=== PATIENT | male | born 1980 | race Caucasian/White ===

== ENCOUNTER 2025-01-19 13:31 | Emergency (ER) | payer SELFPAY ==
[2025-01-19 13:39] VITALS: BP 144/78; PULSE 69; RESP 18; TEMP 37; O2SAT 95; BMI 26.6
--- NOTE | 2025-01-19 13:57 | EDNOTE_ITS ---
ED Medical Clearance RME/HPI General Chief complaint: Medical Clearance Stated complaint: MEDICAL CLEARANCE Arrival date/time: 01/19/25 13:31 RME / HPI RME / HPI Narrative: 45 year old male presents to the ED BIB [facility] [place] for medical clearance today. Per officer, patient is suspected to be under the influence of Fentanyl. Patient admits to overdosing on Fentanyl several days ago; states he was found unresponsive in his bathroom and was given Narcan. While in the ED patient has no complaints. Denies fevers, chills, chest pain, shortness of breath, abdominal pain, n/v, or urinary symtptoms. Review of Systems Review of Systems Narrative Review of Systems: GEN: No fever, no chills EYES: No discharge, no pain HEENT: No ear pain, no congestion, no sore throat PULM: No shortness of breath, no cough, no congestion CV: No chest pain, no palpitations GI: No nausea, no vomiting, no diarrhea, no pain, no constipation : No frequency, no urgency, no dysuria MUSC/SKEL: No joint pain, no back pain SKIN: No rash NEURO: No weakness, no headache Past Medical History Past Medical History CARDIAC: Negative Congestive Heart Failure RESPIRATORY: Negative Chronic Obstructive Pulmonary Disease (COPD) GENITOURINARY: Negative Renal Disease ENDOCRINE: Negative Diabetes Mellitus Type 1 or Diabetes Mellitus Type 2 Social History SMOKING STATUS: Current every day smoker ED Exam Narrative Physical exam: GENERAL APPEARANCE: Drowsy but arousable, oriented x 4, well-developed, well- nourished, no acute distress HEENT: normocephalic, atraumatic; pupils are 2mm and reactive NECK: supple LUNGS: no respiratory distress, normal effort HEART: good peripheral perfusion ABDOMEN: non distended EXTREMITIES:? atraumatic NEUROLOGIC: drowsy but arousable; oriented x4; cranial nerves II-XII grossly intact PSYCHIATRIC:? appropriate mood and affect SKIN: warm, dry, normal color; no rashes Course Quality Measures none Orders Category Date Time Status Bedside Blood Glucose NOW Care 01/19/25 13:57 Completed Vital Signs Vital signs: Vital Signs Temperature 98.6 F 01/19/25 13:39 Pulse Rate 69 01/19/25 13:39 Respiratory Rate 18 01/19/25 13:39 Blood Pressure 144/78 H 01/19/25 13:39 Pulse Oximetry (%) 95 01/19/25 13:39 Oxygen Delivery Method Room Air 01/19/25 13:39 Pulse ox is 95% on room air which is adequate. Medical Clearance MDM Narrative MDM Narrative:: Whitney Bosch am scribing for and in the presence of Dr. Crandall. Patient data External records reviewed:: [facility] previous records (Per EMR review, no previous visits for review ) Clinical information provided by:: patient and law enforcement Social determinants that could affect healthcare access:: substance use Patient has the following chronic illnesses:: None reported How is presenting disease/condition affected by chronic disease/condition?: no chronic disease Evaluation data The following diagnostics were reviewed and interpreted by me:: other (specify) (No diagnostics ordered ) Lab and/or radiology exams considered but not ordered:: None Interpretation Summary: N/A Medications / Prescriptions Medications or Prescriptions considered but not ordered:: None Medication administrations:: None Consultations Consultation(s) initiated? (list below): No Diagnosis Medical Clearance Differential Diagnosis: other (Drug intoxication, alcohol intoxication, medical clearance for incarceration. ) Most likely diagnosis given after review of the tests above:: Medical clearance for incarceration Drowsy Drug abuse, opioid type Admission Indicated Admission indicated?: not indicated Admission Request Was there a request for admission?: No Disposition Plan Disposition Plan: Discharge Discharge Attestation Discharge Attestation: The patient and all family members were given an opportunity to ask questions and understood the discharge instructions. Discharge instructions specifically effects, indications for sooner follow up or return to the emergency department, and the expected course of current diagnosis. Patient condition: Stable Discharge Plan Plan Patient Disposition: Care Home/Court/Law Disposition Comment: Okay to book Prescriptions/Referrals Referrals: No Primary/Family,Physician [Primary Care Provider] - In 1 week Problem List Clinical Impression: Medical clearance for incarceration, Drowsy, Drug abuse, opioid type Patient/Caregiver Discharge Instructions Education Materials: ED Opiate Abuse Print Language: Pashto
== END 2025-01-19 14:21 ==
PROVIDERS: Emergency Provider Emergency Medicine
DX: Z02.89 Encounter for other administrative examinations (principal); R40.0 Somnolence; F11.10 Opioid abuse, uncomplicated
CPT/HCPCS: 99282